=== PATIENT | female | born 1980 | race Caucasian/White ===

== ENCOUNTER 2017-02-24 01:34 | Emergency (ER) | payer BC ==
[~2017-02-24] VITALS: Ht 162.6 cm; Wt 81.7 kg
[2017-02-24] MEDS ORDERED: OMEPRAZOLE10 MG (01:43)
[2017-02-24] MEDS ORDERED: FIBER SELECT G1 EACH (01:44)
[2017-02-24] MEDS ORDERED: RHINOCORT ALL8.43 ML NASAL (01:44)
[2017-02-24] MEDS ORDERED: TRINATE TABLET1 TAB PO (01:44)
[2017-02-24] MEDS ORDERED: CALCIUM500 M1 (01:45)
[2017-02-24 02:06] LABS: ABSOLUTE NEUTROPHILS 5.4 thou/uL (1.4-8.2); BASOPHILS 0.6 % (0.0-2.0); EOSINOPHILS 2.5 % (0.0-3.0); HEMATOCRIT 38.2 % (37.0-47.0); HEMOGLOBIN 13.1 gm/dL (12.0-15.0); LYMPHOCYTES 34.6 % (24.0-44.0); MCH 30.8 pg (26.0-34.0); MCHC 34.3 g/dL (28.0-37.0); PLATELET COUNT 318 thou/uL (150-400); POLYS 54.3 % (36.0-66.0); RBC 4.25 mil/uL (4.20-5.00); RDW 12.9 % (10.5-14.5)
[2017-02-24 02:10] LABS: CALCIUM 8.8 mg/dL (8.5-10.1); CREATININE 0.8 mg/dL (0.6-1.0)
[2017-02-24 02:11] LABS: MANUAL DIFF NO
[2017-02-24 02:15] LABS: ALBUMIN 3.5 g/dL (3.4-5.0); TOTAL BILIRUBIN 0.1 mg/dL (<0.1-1.0); TOTAL PROTEIN 7.2 g/dL (6.4-8.2)
[2017-02-24] MEDS ORDERED: NORCO 5-325 TA1 EACH PO (02:28)
[2017-02-24] MEDS ORDERED: FLOMAX0.4 MG PO (02:28)
[2017-02-24] MEDS ORDERED: TORADOL 10 MG T10 MG PO (02:28)
[2017-02-24 02:55] LABS: URINE BILIRUBIN NEGATIVE (Negative); URINE BLOOD 1+ (Negative); URINE COLOR YELLOW; URINE GLUCOSE-RANDOM* NEGATIVE (Negative); URINE KETONES TRACE (Negative); URINE LEUKOCYTES-REFLEX NEGATIVE (Negative); URINE PROTEIN (DIPSTICK) NEGATIVE (Negative); URINE SPECIFIC GRAVITY 1.015 (1.003-1.035); URINE UROBILINOGEN 0.2 E.U./dl (0.2-1.0)
[2017-02-24 03:06] LABS: CASTS None Seen /LPF (None Seen); SQUAMOUS 4-10 Moderate /LPF (0-3)
[2017-02-24 03:07] LABS: CRYSTALS None Seen /LPF (None Seen); URINE RBC 0-2 Rare /HPF (0-2); URINE WBC-REFLEX None Seen /HPF (0-5)
[2017-02-24 03:28] VITALS: BP 119/65
== END 2017-02-24 03:31 | disposition home or self-care (01) ==
LOC: ER 01:34
PROVIDERS: Emergency Medicine
DX: N20.0 Calculus of kidney (principal); Z87.442 Personal history of urinary calculi; Z88.1 Allergy status to other antibiotic agents